=== PATIENT | female | born 1985 | race Caucasian/White ===

== ENCOUNTER 2017-01-29 16:39 | Emergency (ER) | payer SELFPAY ==
[~2017-01-29] VITALS: Ht 167.6 cm; Wt 58.0 kg
[~2017-01-29 16:39] MED LIST: ACET1TAB40 PO; AUG875 PO; IBUP-1542 PO
[2017-01-29 16:47] VITALS: Ht 167.6 cm; Wt 58.0 kg
[2017-01-29] MEDS ORDERED: KETOROLAC 15 MG INJ IM STA (17:17)
[2017-01-29] MEDS ORDERED: SODIUM CHLORIDE 0.9% 1L IRRIG IRR STA (17:17)
--- NOTE | 2017-01-29 17:17 | ERD ---
ER Documentation Chief Complaint Date/Time DATE: 01/29/17 TIME: 17:14 Chief Complaint left leg & lower back pain, fell off horse today, no deformity pt ambulator HPI This 31-year-old female presents to the emergency department today with pain reported above left gluteus . she and her daughter were riding horses today and she was thrown from her horse when her horse got stuck in some plastic. pt landed of her back and cut left amaro of saddle. Denies hitting her head or loss of consciousness, she denies any other injury to the knee, foot, ankle, shoulder, elbow or neck. Patient doesn't remember last TD ROS All systems reviewed and are negative except as per history of present illness. Medications Home Meds Active Scripts Acetaminophen-Codeine* (Acetaminophen-Cod #3*) 300-30 Mg Tab, 1 TAB PO Q6 Y for PAIN LEVEL 6-10, #20 TAB Prov:DANNY BUCKNER. REWRITE EDITOR 10/13/14 Ibuprofen* (Ibuprofen*) 600 Mg Tablet, 600 MG PO Q6H Y for PAIN AND OR ELEVATED TEMP, #30 Prov:DANNY BUCKNER. REWRITE EDITOR 10/13/14 Amoxicillin-Clavulanate K* (Augmentin*) 875 Mg Tab, 875 MG PO BID for 7 Days, TAB Prov:DANNY BUCKNER. REWRITE EDITOR 10/13/14 Allergies Allergies: Coded Allergies: No Known Allergy (Verified , 01/29/17) PMhx/Soc History of Surgery: No Anesthesia Reaction: No Hx Neurological Disorder: No Hx Respiratory Disorders: No Hx Cardiac Disorders: No Hx Psychiatric Problems: No Hx Miscellaneous Medical Probl: No Hx Alcohol Use: Yes (OCCASIONAL) Hx Substance Use: No Hx Tobacco Use: No Physical Exam Vitals Vital Signs Date Time Temp Pulse Resp B/P Pulse Ox O2 Delivery O2 Flow Rate FiO2 01/29/17 16:47 98.2 71 18 122/73 100 Stable triage notes reviewed Physical Exam Const: Well-nourished, well-hydrated, well-appearing, no acute distress Head: Atraumatic hematoma, laceration, or ecchymosis Eyes: Normal Conjunctiva, PERRLA, EOMI ENT: Normal External Ears, Nose and Mouth. Neck: Cervical point tenderness, no paraspinal tenderness. Range of motion Resp: No chest wall tenderness, clear to auscultation bilaterally Cardio: Regular rate and rhythm, no murmurs Abd: Soft, non tender, non distended. Skin: Left superior amaro presents with 0.5 cm laceration Back Exam: Skin: No bruising or rash Compartments: Soft Motor: Right leg raises negative at 90 bilaterally, discomfort reported with abduction and abduction bilaterally Sensation: Intact to light touch throughout Bones: No midline TTP Ext: No cyanosis, or edema Neur: Awake and alert Psych: Normal Mood and Affect Results 24 hrs Current Medications Medications (Trade) Dose Ordered Sig/Todd Route PRN Reason Start Time Stop Time Status Last Admin Dose Admin Diphtheria/ Tetanus/Acell Pertussis (Adacel) 0.5 ml ONCE ONCE IM 01/29/17 17:30 01/29/17 17:31 DC 01/29/17 17:43 Sodium Chloride (NS (Irrig)) 1,000 ml ONCE STAT IRR 01/29/17 17:17 01/29/17 17:22 DC 01/29/17 17:52 Ketorolac Tromethamine (Toradol) 15 mg ONCE STAT IM 01/29/17 17:17 01/29/17 17:22 DC 01/29/17 17:43 Procedures/MDM PROCEDURE: XR Lumbar Spine. CLINICAL INDICATION: Trauma due to a fall from a horse. Back pain. TECHNIQUE: Three views. AP, lateral and cone-down lateral view of the lumbar spine were obtained. COMPARISON: No prior studies are available for comparison. FINDINGS: There is normal stature and alignment of the vertebrae. There is no fracture. There is no lytic or blastic lesion. The disk height is normal. Surgical clips are present in the right upper quadrant of the abdomen. IMPRESSION: 1. Prior right upper quadrant abdomen surgery. 2. Otherwise unremarkable images of the lumbar spine. Electronically viewed and signed by .Arley Mcnulty MD, MD on 01/29/2017 19:33 This 31-year-old female presents to emergency department after being thrown from a horse landing on her left gluteus carmen, left lumbar, hitting her left amaro on saddle causing laceration. Injury occurred an hour and a half ago. Patient reports pain, stiffness, denies hitting her head or loss of consciousness, denies difficulty breathing, change in memory or behavior. These emergency room course includes wound care with copious irrigation, tetanus update, lumbar spine x-ray. Etiology is reading 1 prior right upper quadrant abdominal surgery. 2 otherwise unremarkable images of the lumbar spine. Patient's evaluation of left leg laceration after copious irrigation, laceration is superficial requiring closure with Steri-Strips. Tetanus has been updated. Patient will be discharged home with a 5 day course of X 3 times daily, Naprosyn 1 tab p.o. twice daily with food 10 days, Valium 5 for myopathy 1 tab p.o. every 8 hours no drinking alcohol or driving on Valium. With primary care physician if symptoms fail to improve after 10 days for possible referral to physical therapy. Patient is stable with no new complaints during ER course, clinically there is no current evidence to suggest compression fracture, cauda equina syndrome, patient syndrome, intracranial bleed or any other emergent condition appearing to require further evaluation or hospitalization. I feel the patient is stable for discharge at this time. I have discussed results, examination findings, the treatment plan with the patient and family present prior to discharge. Indications for emergent reevaluation, side effects of medication were also discussed. All questions were answered. Patient verbalizes understanding and agrees with plan of care. Departure Diagnosis: Primary Impression: Animal-rider injured by fall from or being thrown from horse in noncollision accident, initial encounter Condition: Good Patient Instructions: Laceration, Extrem (Suture, Staple, Or Tape) Referrals: [facility] Additional Instructions: Thank you for for coming to the [facility] for your care today. Please ask your nurse or provider if you have questions about your care today and do not leave until all your questions have been answered. Please use any medications given as directed and follow-up with your doctor (or the doctor you were referred to) in the next 2-3 days. If you do not have a primary care doctor you may follow up at the [facility] (listed below). You may also use motrin and tylenol as needed for fever and/or pain unless instructed otherwise by your provider or nurse. Indications for more urgent follow-up have been discussed, but you may return to the Emergency Department at ANY time for any worrisome or worsening symptoms. If you have abdominal pain, please know that no test or exam you received is perfect and you should follow up within 8 hours for continued pain. If you had any imaging studies today, such as an X-Ray or CT Scan, these studies will be reviewed later by a radiologist. You will be called if there are important findings that were not identified today, so make sure the contact information you provided at registration is correct. If you received any narcotic pain control medicine today, such as Vicodin, Morphine or Dilaudid, your coordination and judgment may be affected for a number of hours. Please do not drive or operate heavy machinery, and you may want someone to assist you at home. If you were given a prescription for narcotic medication, be aware that it is very addictive- use sparingly and only if necessary. ZENY NICOLE Jan 29, 2017 17:17
[2017-01-29] MEDS ORDERED: DIPHTH/TET/ACEL PERTUSS (ADULT) 0.5 ML VIAL IM ONE (17:30)
--- NOTE | 2017-01-29 19:33 | RADRPT ---
PROCEDURE: XR Lumbar Spine. CLINICAL INDICATION: Trauma due to a fall from a horse. Back pain. TECHNIQUE: Three views. AP, lateral and cone-down lateral view of the lumbar spine were obtained. COMPARISON: No prior studies are available for comparison. FINDINGS: There is normal stature and alignment of the vertebrae. There is no fracture. There is no lytic or blastic lesion. The disk height is normal. Surgical clips are present in the right upper quadrant of the abdomen. IMPRESSION: 1. Prior right upper quadrant abdomen surgery. 2. Otherwise unremarkable images of the lumbar spine. RPTAT: QQ .Arley Mcnulty MD, MD Date Time Electronically viewed and signed by .Arley Mcnulty MD, on 01/29/2017 19:33 .R/
[2017-01-29] MEDS ORDERED: NAPR-260 PO (20:08)
[2017-01-29] MEDS ORDERED: DIAZ-90 PO (20:08)
[2017-01-29] MEDS ORDERED: CEPH-443 PO (20:08)
== END 2017-01-29 20:23 | disposition home or self-care (01) ==
LOC: FTE 16:39
DX: S81.812A Laceration without foreign body, left lower leg, initial encounter (principal); S39.92XA Unspecified injury of lower back, initial encounter; V80.010A Animal-rider injured by fall from or being thrown from horse in noncollision accident, initial encounter; Z23 Encounter for immunization
CPT/HCPCS: 72100; 90471; 90715; 96372; 99284; J1885